=== PATIENT | male | born 1935 | race Caucasian/White ===

== ENCOUNTER → 2018-11-12 | Outpatient (CLI) | payer MEDICARE, BC | END | disposition home or self-care (01) | LOC: CVU 11:27 | PROVIDERS: ATTEND Internal Medicine Cardiovascular Disease | DX: I08.3 Combined rheumatic disorders of mitral, aortic and tricuspid valves (principal); I48.91 Unspecified atrial fibrillation; I10 Essential (primary) hypertension; E78.5 Hyperlipidemia, unspecified; Z95.0 Presence of cardiac pacemaker; Z87.891 Personal history of nicotine dependence | CPT/HCPCS: 93306 ==

== ENCOUNTER 2019-05-19 11:44 | Outpatient (CLI) | payer MEDICARE, BC ==
[~2019-05-19 11:44] MED LIST: AMLO-150 PO; ATOR40TA78 PO; FINA5TAB4 PO; LOSA100T14 PO; METO-282 PO; OMEP-110 PO; RIVA20TA PO
== END 2019-05-19 23:59 | disposition home or self-care (01) ==
LOC: PETCFH 11:44
PROVIDERS: ATTEND Otolaryngology
DX: R22.0 Localized swelling, mass and lump, head (principal)
CPT/HCPCS: 78815; A9552

== ENCOUNTER 2019-07-31 17:21 | Inpatient (IN) | payer MEDICARE, BC ==
[~2019-07-31] VITALS: Ht 185.4 cm; Wt 92.8 kg
[~2019-07-31 17:21] MED LIST changes: +DEXA4TAB66 PO; +RIVA15TA PO
--- NOTE | 2019-07-31 17:30 | NUR ---
PT BIB [facility] FROM HOME FOR ALTERED MENTAL STATUS AND FAILURE TO THRIVE. PER , PT HAS BEEN DISORIENTED FOR THE PAST SEVERAL DAYS AND REFUSING TO EAT OR DRINK MUCH. ALSO, PT HAS BEEN MORE HYPOXIC AND SOB THE PAST WEEK, REQUIRING 3L O2 INSTEAD OF 1L. PT HAD RECENT SADDLE PE DX. PT ALSO HAS HX OF SQUAMOUS CELL CARCINOMA, AFIB, BPH. ARRIVES TO ED A&OX3, C/O HEAD PRESSURE /. AT BS. Addendum: 07/31/19 at 1829 by HBENSON PT HAS BEEN ON HOME O2 FOR 4 DAYS. INITIALLY WAS ON 2L, NOW ON 3L. ALSO REPORTS THAT 4 DAYS AGO, PT "BLEW OUT THE BOLSTER THAT WAS PLACED AFTER THE CAVERNOUS SINUS DECOMPRESSION, AND HIS SYMPTOMS HAVE BEEN MUCH WORSE SINCE THEN".
[2019-07-31] MEDS ORDERED: DEXA0.5T15 PO (17:52)
[2019-07-31] MEDS ORDERED: OXYC10TA6 PO (17:53)
--- NOTE | 2019-07-31 18:00 | NUR ---
PT ATTEMPTED TO VOID SITTING AT THE SIDE OF THE BED WITH ASSISTANCE, BUT WAS UNABLE TO VOID. FAMILY STATES PT DIDN'T EAT OR DRINK MUCH TODAY AND HASN'T VOIDED MUCH.
--- NOTE | 2019-07-31 18:27 | NUR ---
ERP AT NOW.
[2019-07-31 18:50] LABS: BASOPHILS # (AUTO) 0.03 x10^3/uL (0-0.1); BASOPHILS % (AUTO) 0 % (0-1); EOSINOPHILS % (AUTO) 0 % (1-7); LYMPHOCYTES # (AUTO) 0.57 x10^3/uL (1-3.4); LYMPHOCYTES % (AUTO) 7 % (22-44); MD NO; MEAN CORPUSCULAR HEMOGLOBIN 31.8 pg (27.5-34.5); MEAN CORPUSCULAR HGB CONC 33.7 g/dL (33.2-36.2); MEAN CORPUSCULAR VOLUME 94.2 fL (81-97); MONOCYTES # (AUTO) 0.28 x10^3/uL (0.2-0.8); MONOCYTES % (AUTO) 4 % (2-9); NEUTROPHILS # (AUTO) 6.84 x10^3/uL (1.8-6.8); NEUTROPHILS % (AUTO) 89 % (42-75); PLATELET COUNT 135 x10^3/uL (130-400); RED BLOOD COUNT 3.85 x10^6/uL (4.38-5.82); RED CELL DISTRIBUTION WIDTH 16.4 % (9.4-14.8)
[2019-07-31 18:59] LABS: INTERNATIONAL NORMALIZED RATIO 1.53 (0.93-1.1); PROTHROMBIN TIME 15.8 Seconds (9.6-11.5)
[2019-07-31] MEDS ORDERED: PLEASE ENTER ALLERGIES MC SCH (19:00)
[2019-07-31] MEDS ORDERED: ONDANSETRON 2MG/ML, 2ML IVPush ONE (19:00)
[2019-07-31] MEDS ORDERED: SODIUM CHLORIDE 0.9% 1,000ML IVBOLUS ONE (19:00)
[2019-07-31] MEDS ORDERED: ACETAMINOPHEN 325 MG TABLET PO ONE (19:00)
[2019-07-31 19:02] LABS: ALANINE AMINOTRANSFERASE 48 U/L (12-78); ALBUMIN 1.8 g/dL (3.4-5.0); ANION GAP 7 mmol/L (5-15); CALCIUM 8.9 mg/dL (8.5-10.1); CHLORIDE 95 mmol/L (98-107); CREATININE 0.99 mg/dL (0.7-1.3)
[2019-07-31 19:06] LABS: ALKALINE PHOSPHATASE 128 U/L (45-117); BILIRUBIN,TOTAL 1.4 mg/dL (0.2-1.0); TOTAL PROTEIN 6.5 g/dL (6.4-8.2); TROPONIN I 0.019 ng/mL (0.000-0.045)
[2019-07-31] MEDS ORDERED: ONDANSETRON 2MG/ML, 2ML ONE (19:09)
[2019-07-31] MEDS ORDERED: MORPHINE SULFATE 4 MG/ML, 1ML ONE ×3 (19:09→23:24)
[2019-07-31] MEDS ORDERED: ACETAMINOPHEN 500 MG TABLET ONE (19:09)
[2019-07-31] MEDS: MORPHINE SULFATE 4 MG/ML, 1ML IVPush PRN ×2 (19:15→21:34)
--- NOTE | 2019-07-31 19:38 | NUR ---
SPO2 DROPPED TO 78% ON RA WHILE RESTING, PT BREATHING OUT OF MOUTH. SWITCHED TO OXYMASK AT 10L, SPO2 IMPROVED TO 92%.
--- NOTE | 2019-07-31 19:52 | NUR ---
PT TO CT VIA [facility].
--- NOTE | 2019-07-31 20:08 | NUR ---
PT BACK FROM CT. RESTING IN [facility] NOW, AWAKENS TO VOICE. FAMILY AT BS.
--- NOTE | 2019-07-31 20:47 | NUR ---
BEDSIDE REPORT RECEIVED FROM CYNDI GUO. PLAN OF CARE DISCUSSED.
--- NOTE | 2019-07-31 20:56 | NUR ---
Debbie varma in [place] - 07/31/19 at 2057 by DEIDRA POSTERIOR HEAD LACERATION IRRIGATED WITH 800ML NS. REPORTED TO ALEXUS LEMON
[2019-07-31] MEDS ORDERED: CEFTRIAXONE PMX 1GM/50ML 50 ML IV ONE (21:30)
[2019-07-31] MEDS ORDERED: AZITHROMYCIN 500 MG in SODIUM CHLORIDE 0.9% 250 ML IV SCH (21:30)
--- NOTE | 2019-07-31 21:40 | NUR ---
PATIENT MEDICATED PER EMAR, TOLERATED WELL. FAMILY IN ROOM, DENIES NEEDS
[2019-07-31] MEDS ORDERED: CEFTRIAXONE PMX 1GM/50ML 50 ML ONE (21:42)
--- NOTE | 2019-07-31 21:51 | NUR ---
TWO SETS OF BLOOD CULTURES DRAWN BEFORE ABX ADMIN
[2019-07-31] MEDS ORDERED: AZITHROMYCIN 500 MG in SODIUM CHLORIDE 0.9% 250 ML IV ONE (22:00)
--- NOTE | 2019-07-31 22:45 | NUR ---
FIRST ABX FINISHED. SWITCH TO SECOND ABX. PT TO BE TRANSPORTED WITH SECOND ABX RUNNING ON PUMP
--- NOTE | 2019-07-31 23:14 | NUR ---
REPROT GIVEN TO CYNDI RAINES. PLAN OF CARE DISCUSSED.
[2019-07-31] MEDS ORDERED: ONDANSETRON 2MG/ML, 2ML IVPush PRN (23:30)
[2019-07-31] MEDS ORDERED: BISACODYL 10 MG SUPP PR PRN (23:30)
[2019-07-31] MEDS ORDERED: TEMPLATE NON-FORMULARY MED. (Oxycodone Hcl** 10 MG) PO SCH (23:30)
[2019-07-31] MEDS ORDERED: POLYETHYLENE GLYCOL 17 GM PACKET PO PRN (23:30)
[2019-07-31] MEDS ORDERED: VANCOMYCIN PER PHARMACY MC PRN (23:30)
[2019-07-31] MEDS: RIVAROXABAN 15 MG TABLET PO SCH (23:32)
[2019-07-31] MEDS: morphine SULFATE 10 MG/ML, 1ML IVPush PRN (23:33)
[2019-07-31] MEDS ORDERED: OMNIPAQUE 350 MG/ML, 100ML BOTTLE ONE (23:36)
--- NOTE | 2019-07-31 23:37 | NUR ---
PATIENT SWITCHED TO DIFFERENT ADMITTING FLOOR.
--- NOTE | 2019-07-31 23:38 | NUR ---
PATIENT MEDICATED PER EMAR, TOELRATED WELL. GIVEN XARELTO AND MORPHINE PER MD ORDERS.
--- NOTE | 2019-07-31 23:48 | NUR ---
REPORT GIVEN TO CYNDI RECINOS. PLAN OF CARE DISCUSSED. PATIENT BEING TRANSPORTED UP AT THIS TIME
[2019-08-01 00:10] VITALS: BP 105/73
[2019-08-01] MEDS ORDERED: PHARMACOKINETIC MONITORING MC PRN (01:00)
[2019-08-01] MEDS ORDERED: PHARMACOKINETIC CONSULTATION MC ONE (01:00)
[2019-08-01] MEDS: DEXAMETHASONE 0.5 MG TABLET PO SCH ×3 (01:00→21:01)
[2019-08-01] MEDS ORDERED: DEXAMETHASONE 1 MG TABLET ONE ×2 (01:04→20:43)
[2019-08-01] MEDS: METOPROLOL TARTRATE 25 MG TABLET PO SCH ×3 (01:23→21:01)
[2019-08-01] MEDS: SODIUM CHLORIDE 0.9% 1,000 ML IV SCH ×2 (01:23→15:11)
[2019-08-01] MEDS: FINASTERIDE 5 MG TABLET PO SCH ×2 (01:23→21:01)
[2019-08-01] MEDS: ATORVASTATIN 40 MG TABLET PO SCH ×2 (01:23→21:01)
[2019-08-01] MEDS: PIPERACILLIN/TAZO/PMX 3.375GM 50 ML IV SCH ×4 (02:01→20:37)
[2019-08-01] MEDS: VANCOMYCIN 1,600 MG in SODIUM CHLORIDE 0.9% 250 ML IV SCH (03:13)
[2019-08-01] MEDS: morphine SULFATE 10 MG/ML, 1ML IVPush PRN ×5 (04:12→22:45)
[2019-08-01 05:52] LABS: BASOPHILS # (AUTO) 0.01 x10^3/uL (0-0.1); BASOPHILS % (AUTO) 0 % (0-1); EOSINOPHILS % (AUTO) 0 % (1-7); LYMPHOCYTES # (AUTO) 0.59 x10^3/uL (1-3.4); LYMPHOCYTES % (AUTO) 8 % (22-44); MD NO; MEAN CORPUSCULAR HEMOGLOBIN 31.7 pg (27.5-34.5); MEAN CORPUSCULAR HGB CONC 33.4 g/dL (33.2-36.2); MEAN CORPUSCULAR VOLUME 94.9 fL (81-97); MEAN PLATELET VOLUME 8.4 fL (7.4-10.4); MONOCYTES # (AUTO) 0.02 x10^3/uL (0.2-0.8); MONOCYTES % (AUTO) 0 % (2-9); NEUTROPHILS # (AUTO) 7.11 x10^3/uL (1.8-6.8); NEUTROPHILS % (AUTO) 92 % (42-75); PLATELET COUNT 120 x10^3/uL (130-400); RED BLOOD COUNT 3.67 x10^6/uL (4.38-5.82); RED CELL DISTRIBUTION WIDTH 16.9 % (9.4-14.8)
[2019-08-01 05:56] LABS: ANION GAP 4 mmol/L (5-15); CALCIUM 8.3 mg/dL (8.5-10.1); CHLORIDE 100 mmol/L (98-107)
[2019-08-01 06:01] LABS: ALANINE AMINOTRANSFERASE 45 U/L (12-78); ALBUMIN 1.6 g/dL (3.4-5.0); ALKALINE PHOSPHATASE 115 U/L (45-117); BILIRUBIN,TOTAL 1.3 mg/dL (0.2-1.0); CREATININE 0.84 mg/dL (0.7-1.3); TOTAL PROTEIN 5.6 g/dL (6.4-8.2)
[2019-08-01 07:14] VITALS: BP 129/83
[2019-08-01] MEDS ORDERED: DEXAMETHASONE 0.5 MG TABLET PO SCH (09:00)
[2019-08-01] MEDS: SENNA/DOCUSATE TABLET PO SCH (09:00)
[2019-08-01] MEDS: OMEPRAZOLE 20 MG CAPSULE.DR PO SCH (09:35)
[2019-08-01] MEDS: RIVAROXABAN 15 MG TABLET PO SCH ×2 (12:08→21:01)
[2019-08-01 13:32] VITALS: BP 139/79
[2019-08-01 20:02] VITALS: BP 111/67
[2019-08-02] MEDS: SODIUM CHLORIDE 0.9% 1,000 ML IV SCH ×2 (01:08→14:31)
[2019-08-02] MEDS: VANCOMYCIN 1,600 MG in SODIUM CHLORIDE 0.9% 250 ML IV SCH (01:08)
[2019-08-02 01:25] VITALS: BP 120/78
[2019-08-02] MEDS: PIPERACILLIN/TAZO/PMX 3.375GM 50 ML IV SCH ×4 (03:31→20:38)
[2019-08-02 04:53] LABS: BASOPHILS # (AUTO) 0.02 x10^3/uL (0-0.1); BASOPHILS % (AUTO) 0 % (0-1); EOSINOPHILS % (AUTO) 0 % (1-7); LYMPHOCYTES # (AUTO) 0.54 x10^3/uL (1-3.4); LYMPHOCYTES % (AUTO) 8 % (22-44); MD NO; MEAN CORPUSCULAR HEMOGLOBIN 31.5 pg (27.5-34.5); MEAN CORPUSCULAR HGB CONC 33.2 g/dL (33.2-36.2); MEAN CORPUSCULAR VOLUME 94.8 fL (81-97); MEAN PLATELET VOLUME 7.9 fL (7.4-10.4); MONOCYTES # (AUTO) 0.06 x10^3/uL (0.2-0.8); MONOCYTES % (AUTO) 1 % (2-9); NEUTROPHILS % (AUTO) 91 % (42-75); PLATELET COUNT 126 x10^3/uL (130-400); RED BLOOD COUNT 3.68 x10^6/uL (4.38-5.82); RED CELL DISTRIBUTION WIDTH 15.9 % (9.4-14.8)
[2019-08-02 05:06] LABS: ALBUMIN 1.5 g/dL (3.4-5.0); ANION GAP 4 mmol/L (5-15); CALCIUM 8.6 mg/dL (8.5-10.1); CHLORIDE 102 mmol/L (98-107)
[2019-08-02 05:11] LABS: ALANINE AMINOTRANSFERASE 38 U/L (12-78); ALKALINE PHOSPHATASE 105 U/L (45-117); CREATININE 0.75 mg/dL (0.7-1.3)
[2019-08-02] MEDS: morphine SULFATE 10 MG/ML, 1ML IVPush PRN ×5 (05:14→22:14)
[2019-08-02] MEDS: ALBUTEROL SULFATE 2.5 MG/3 ML NPPB PRN (07:25)
[2019-08-02 08:14] VITALS: BP 135/76
[2019-08-02] MEDS: DEXAMETHASONE 0.5 MG TABLET PO SCH ×2 (09:43→20:39)
[2019-08-02] MEDS: METOPROLOL TARTRATE 25 MG TABLET PO SCH ×2 (09:43→20:39)
[2019-08-02] MEDS: OMEPRAZOLE 20 MG CAPSULE.DR PO SCH (09:43)
[2019-08-02] MEDS: SENNA/DOCUSATE TABLET PO SCH (09:43)
[2019-08-02] MEDS: RIVAROXABAN 15 MG TABLET PO SCH ×2 (09:48→20:38)
[2019-08-02 10:58] LABS: MICROSCOPIC AUTO
[2019-08-02 11:01] LABS: CULTURE INDICATED? YES
[2019-08-02 13:42] VITALS: BP 123/76
[2019-08-02] MEDS: OXYcodone IR 5MG TABLET PO PRN ×2 (16:16→23:34)
[2019-08-02 19:21] VITALS: BP 134/84
[2019-08-02] MEDS: ALBUTEROL SULFATE 2.5 MG/3 ML NPPB SCH (20:00)
[2019-08-02] MEDS: FINASTERIDE 5 MG TABLET PO SCH (20:38)
[2019-08-02] MEDS: ATORVASTATIN 40 MG TABLET PO SCH (20:38)
[2019-08-03] MEDS: SODIUM CHLORIDE 0.9% 1,000 ML IV SCH ×3 (00:37→23:37)
[2019-08-03] MEDS: VANCOMYCIN 1,600 MG in SODIUM CHLORIDE 0.9% 250 ML IV SCH (00:37)
[2019-08-03 01:41] VITALS: BP 138/78
[2019-08-03] MEDS: morphine SULFATE 10 MG/ML, 1ML IVPush PRN (03:28)
[2019-08-03 04:55] LABS: BASOPHILS # (AUTO) 0.04 x10^3/uL (0-0.1); BASOPHILS % (AUTO) 1 % (0-1); EOSINOPHILS # (AUTO) 0.01 x10^3/uL (0-0.4); EOSINOPHILS % (AUTO) 0 % (1-7); LYMPHOCYTES # (AUTO) 0.46 x10^3/uL (1-3.4); LYMPHOCYTES % (AUTO) 8 % (22-44); MD NO; MEAN CORPUSCULAR HEMOGLOBIN 31.5 pg (27.5-34.5); MEAN CORPUSCULAR HGB CONC 33.3 g/dL (33.2-36.2); MEAN CORPUSCULAR VOLUME 94.6 fL (81-97); MEAN PLATELET VOLUME 7.9 fL (7.4-10.4); MONOCYTES # (AUTO) 0.16 x10^3/uL (0.2-0.8); MONOCYTES % (AUTO) 3 % (2-9); NEUTROPHILS # (AUTO) 5.51 x10^3/uL (1.8-6.8); NEUTROPHILS % (AUTO) 89 % (42-75); PLATELET COUNT 134 x10^3/uL (130-400); RED BLOOD COUNT 3.46 x10^6/uL (4.38-5.82); RED CELL DISTRIBUTION WIDTH 16.8 % (9.4-14.8)
[2019-08-03 05:01] LABS: ALBUMIN 1.6 g/dL (3.4-5.0); ANION GAP 5 mmol/L (5-15); CALCIUM 8.6 mg/dL (8.5-10.1); CHLORIDE 102 mmol/L (98-107)
[2019-08-03 05:06] LABS: ALANINE AMINOTRANSFERASE 33 U/L (12-78); ALKALINE PHOSPHATASE 103 U/L (45-117); BILIRUBIN,TOTAL 0.8 mg/dL (0.2-1.0); CREATININE 0.74 mg/dL (0.7-1.3); TOTAL PROTEIN 5.8 g/dL (6.4-8.2)
[2019-08-03] MEDS: PIPERACILLIN/TAZO/PMX 3.375GM 50 ML IV SCH ×4 (06:29→23:37)
[2019-08-03 07:07] VITALS: BP 117/77
[2019-08-03] MEDS: DEXAMETHASONE 0.5 MG TABLET PO SCH ×2 (08:50→20:23)
[2019-08-03] MEDS: METOPROLOL TARTRATE 25 MG TABLET PO SCH ×2 (08:50→20:23)
[2019-08-03] MEDS: OMEPRAZOLE 20 MG CAPSULE.DR PO SCH (08:51)
[2019-08-03] MEDS: SENNA/DOCUSATE TABLET PO SCH (08:51)
[2019-08-03] MEDS: RIVAROXABAN 15 MG TABLET PO SCH ×2 (08:51→20:22)
[2019-08-03] MEDS: ALBUTEROL SULFATE 2.5 MG/3 ML NPPB SCH ×2 (09:38→21:00)
[2019-08-03] MEDS: OXYcodone IR 5MG TABLET PO PRN ×2 (12:07→20:29)
[2019-08-03 12:27] VITALS: BP 112/67
[2019-08-03 19:22] VITALS: BP 133/81
[2019-08-03] MEDS: ATORVASTATIN 40 MG TABLET PO SCH (20:23)
[2019-08-03] MEDS: FINASTERIDE 5 MG TABLET PO SCH (21:12)
[2019-08-03] MEDS: ACETAMINOPHEN 325 MG TABLET PO PRN (23:43)
[2019-08-04 00:03] VITALS: BP 133/88
[2019-08-04] MEDS: VANCOMYCIN 1,600 MG in SODIUM CHLORIDE 0.9% 250 ML IV SCH (00:45)
[2019-08-04] MEDS: PIPERACILLIN/TAZO/PMX 3.375GM 50 ML IV SCH (06:00)
[2019-08-04 06:07] LABS: MEAN CORPUSCULAR HEMOGLOBIN 30.9 pg (27.5-34.5); MEAN CORPUSCULAR HGB CONC 32.6 g/dL (33.2-36.2); MEAN CORPUSCULAR VOLUME 94.6 fL (81-97); RED BLOOD COUNT 3.37 x10^6/uL (4.38-5.82); RED CELL DISTRIBUTION WIDTH 16.9 % (9.4-14.8)
[2019-08-04 06:13] LABS: ALBUMIN 1.4 g/dL (3.4-5.0); ANION GAP 5 mmol/L (5-15); CALCIUM 8.6 mg/dL (8.5-10.1); CHLORIDE 104 mmol/L (98-107)
[2019-08-04 06:17] LABS: ALANINE AMINOTRANSFERASE 48 U/L (12-78); ALKALINE PHOSPHATASE 103 U/L (45-117); BILIRUBIN,TOTAL 1.1 mg/dL (0.2-1.0); CREATININE 0.67 mg/dL (0.7-1.3); TOTAL PROTEIN 5.8 g/dL (6.4-8.2)
[2019-08-04 06:36] LABS: BASOPHILS % (AUTO) 0 % (0-1); EOSINOPHILS % (AUTO) 0 % (1-7); LYMPHOCYTES # (AUTO) 0.56 x10^3/uL (1-3.4); LYMPHOCYTES % (AUTO) 10 % (22-44); MD SCAN; MEAN PLATELET VOLUME 7.8 fL (7.4-10.4); MONOCYTES # (AUTO) 0.07 x10^3/uL (0.2-0.8); MONOCYTES % (AUTO) 1 % (2-9); NEUTROPHILS # (AUTO) 5.11 x10^3/uL (1.8-6.8); NEUTROPHILS % (AUTO) 89 % (42-75); PLATELET COUNT 145 x10^3/uL (130-400)
[2019-08-04] MEDS ORDERED: ALBU8.5H8 PO (06:39)
[2019-08-04] MEDS: ALBUTEROL SULFATE 2.5 MG/3 ML NPPB SCH ×2 (06:52→21:00)
[2019-08-04 08:49] VITALS: BP 142/77
[2019-08-04] MEDS ORDERED: FUROSEMIDE 20 MG/2 ML IV ONE (09:00)
[2019-08-04] MEDS ORDERED: LORazepam 2 MG/ML, 1ML IVPush ONE (09:00)
[2019-08-04] MEDS: DEXAMETHASONE 0.5 MG TABLET PO SCH ×2 (09:47→20:24)
[2019-08-04] MEDS: OMEPRAZOLE 20 MG CAPSULE.DR PO SCH (09:47)
[2019-08-04] MEDS: METOPROLOL TARTRATE 25 MG TABLET PO SCH ×2 (09:47→20:24)
[2019-08-04] MEDS: AMPICILLIN/SULBACTAM 3 GM in SODIUM CHLORIDE 0.9% 100 ML IV SCH ×3 (09:47→20:24)
[2019-08-04] MEDS: RIVAROXABAN 15 MG TABLET PO SCH (09:48)
[2019-08-04] MEDS: SENNA/DOCUSATE TABLET PO SCH (09:48)
[2019-08-04 16:51] VITALS: BP 122/67
[2019-08-04] MEDS ORDERED: PHARMACY INSTRUCTION MC PRN (18:30)
[2019-08-04] MEDS ORDERED: INSTRUCTION SEE COMMENTS XX PRN (18:30)
[2019-08-04 20:16] VITALS: BP 138/83
[2019-08-04] MEDS: MELATONIN 3 MG TABLET PO SCH (20:24)
[2019-08-04] MEDS: RIVAROXABAN 20 MG TABLET PO SCH (20:24)
[2019-08-04] MEDS: ATORVASTATIN 40 MG TABLET PO SCH (20:24)
[2019-08-04] MEDS: FINASTERIDE 5 MG TABLET PO SCH (20:25)
[2019-08-04] MEDS: QUETIAPINE 25MG TABLET PO PRN (21:10)
[2019-08-05] MEDS: morphine SULFATE 10 MG/ML, 1ML IVPush PRN ×3 (01:16→20:36)
[2019-08-05] MEDS: AMPICILLIN/SULBACTAM 3 GM in SODIUM CHLORIDE 0.9% 100 ML IV SCH ×4 (02:09→20:30)
[2019-08-05] MEDS: ALBUTEROL SULFATE 2.5 MG/3 ML NPPB SCH ×3 (05:49→20:31)
[2019-08-05 08:06] VITALS: BP 132/80
[2019-08-05] MEDS: OMEPRAZOLE 20 MG CAPSULE.DR PO SCH (08:16)
[2019-08-05] MEDS: DEXAMETHASONE 0.5 MG TABLET PO SCH ×2 (08:16→20:31)
[2019-08-05] MEDS: SENNA/DOCUSATE TABLET PO SCH ×2 (08:16→08:21)
[2019-08-05] MEDS: METOPROLOL TARTRATE 25 MG TABLET PO SCH ×2 (08:16→20:30)
[2019-08-05] MEDS ORDERED: TAMSULOSIN 0.4 MG CAP.ER.24H PO SCH (09:00)
[2019-08-05 10:00] LABS: BASOPHILS % (AUTO) 0 % (0-1); EOSINOPHILS # (AUTO) 0.01 x10^3/uL (0-0.4); EOSINOPHILS % (AUTO) 0 % (1-7); LYMPHOCYTES % (AUTO) 9 % (22-44); MD NO; MEAN CORPUSCULAR HEMOGLOBIN 31.5 pg (27.5-34.5); MEAN CORPUSCULAR HGB CONC 33.2 g/dL (33.2-36.2); MEAN PLATELET VOLUME 7.6 fL (7.4-10.4); MONOCYTES % (AUTO) 2 % (2-9); NEUTROPHILS # (AUTO) 4.78 x10^3/uL (1.8-6.8); NEUTROPHILS % (AUTO) 89 % (42-75); PLATELET COUNT 153 x10^3/uL (130-400); RED BLOOD COUNT 3.35 x10^6/uL (4.38-5.82); RED CELL DISTRIBUTION WIDTH 16.6 % (9.4-14.8)
[2019-08-05 10:09] LABS: ALANINE AMINOTRANSFERASE 45 U/L (12-78); ALBUMIN 1.5 g/dL (3.4-5.0); ANION GAP 7 mmol/L (5-15); CALCIUM 8.5 mg/dL (8.5-10.1); CHLORIDE 101 mmol/L (98-107); CREATININE 0.77 mg/dL (0.7-1.3)
[2019-08-05 10:15] LABS: ALKALINE PHOSPHATASE 113 U/L (45-117); BILIRUBIN,TOTAL 0.8 mg/dL (0.2-1.0); TOTAL PROTEIN 5.8 g/dL (6.4-8.2)
[2019-08-05] MEDS: OXYcodone IR 5MG TABLET PO PRN (11:30)
[2019-08-05 13:40] VITALS: BP 115/73
[2019-08-05 20:24] VITALS: BP 132/80
[2019-08-05] MEDS: FINASTERIDE 5 MG TABLET PO SCH (20:30)
[2019-08-05] MEDS: RIVAROXABAN 20 MG TABLET PO SCH (20:31)
[2019-08-05] MEDS: ATORVASTATIN 40 MG TABLET PO SCH (20:31)
[2019-08-05] MEDS: MELATONIN 3 MG TABLET PO SCH (20:31)
[2019-08-05] MEDS: QUETIAPINE 25MG TABLET PO PRN (23:21)
[2019-08-06] MEDS: AMPICILLIN/SULBACTAM 3 GM in SODIUM CHLORIDE 0.9% 100 ML IV SCH ×4 (02:50→19:52)
[2019-08-06] MEDS: ALBUTEROL SULFATE 2.5 MG/3 ML NPPB SCH ×3 (07:27→21:15)
[2019-08-06 09:20] LABS: ALBUMIN 1.5 g/dL (3.4-5.0); ANION GAP 5 mmol/L (5-15); CALCIUM 8.4 mg/dL (8.5-10.1); CHLORIDE 101 mmol/L (98-107); CREATININE 0.59 mg/dL (0.7-1.3); MEAN CORPUSCULAR HEMOGLOBIN 31.2 pg (27.5-34.5); MEAN CORPUSCULAR HGB CONC 32.8 g/dL (33.2-36.2); MEAN CORPUSCULAR VOLUME 95.1 fL (81-97); MEAN PLATELET VOLUME 7.6 fL (7.4-10.4); PLATELET COUNT 174 x10^3/uL (130-400); RED BLOOD COUNT 3.36 x10^6/uL (4.38-5.82); RED CELL DISTRIBUTION WIDTH 17.4 % (9.4-14.8)
[2019-08-06 09:23] LABS: ALANINE AMINOTRANSFERASE 43 U/L (12-78); ALKALINE PHOSPHATASE 109 U/L (45-117); BILIRUBIN,TOTAL 0.9 mg/dL (0.2-1.0)
[2019-08-06 09:28] VITALS: BP 126/79
[2019-08-06] MEDS: OMEPRAZOLE 20 MG CAPSULE.DR PO SCH (09:39)
[2019-08-06] MEDS: SENNA/DOCUSATE TABLET PO SCH (09:39)
[2019-08-06] MEDS: METOPROLOL TARTRATE 25 MG TABLET PO SCH ×2 (09:40→19:53)
[2019-08-06] MEDS: DEXAMETHASONE 0.5 MG TABLET PO SCH ×2 (09:40→19:53)
[2019-08-06 10:32] LABS: MD YES
[2019-08-06 10:34] LABS: BAND#(MANUAL) 0.16 x10^3/uL; BANDS%(MANUAL) 3 % (0-7); LYMPH#(MANUAL) 0.92 x10^3/uL (1-3.4); LYMPHS% (MANUAL) 17 % (22-44); METAMYELOCYTES# (MANUAL) 0.05 x10^3/uL (0-0); METAMYELOCYTES% (MANUAL) 1 % (0-1); MONOS#(MANUAL) 0.16 x10^3/uL (0.3-2.7); MONOS% (MANUAL) 3 % (2-9); SEGS% (MANUAL) 76 % (42-75)
[2019-08-06 10:35] LABS: <PLATELET ESTIMATE> ADEQUATE; <PLT MORPHOLOGY> NORMAL PLT MORPH; ANISOCYTOSIS 1+
[2019-08-06] MEDS: ALBUMIN HUMAN 25% 100 ML IV SCH ×3 (12:06→23:33)
[2019-08-06] MEDS: OXYcodone IR 5MG TABLET PO PRN (13:29)
[2019-08-06 14:08] VITALS: BP 136/73
[2019-08-06] MEDS: morphine SULFATE 10 MG/ML, 1ML IVPush PRN (17:56)
[2019-08-06 19:23] VITALS: BP 140/85
[2019-08-06] MEDS: ATORVASTATIN 40 MG TABLET PO SCH (19:52)
[2019-08-06] MEDS: MELATONIN 3 MG TABLET PO SCH (19:53)
[2019-08-06] MEDS: RIVAROXABAN 20 MG TABLET PO SCH (19:53)
[2019-08-06] MEDS: FINASTERIDE 5 MG TABLET PO SCH ×2 (21:00→23:32)
[2019-08-07] MEDS: AMPICILLIN/SULBACTAM 3 GM in SODIUM CHLORIDE 0.9% 100 ML IV SCH ×4 (01:27→20:13)
[2019-08-07] MEDS: QUETIAPINE 25MG TABLET PO PRN (01:27)
[2019-08-07 01:33] VITALS: BP 136/89
[2019-08-07 03:52] LABS: BASOPHILS % (AUTO) 0 % (0-1); EOSINOPHILS # (AUTO) 0.02 x10^3/uL (0-0.4); EOSINOPHILS % (AUTO) 0 % (1-7); LYMPHOCYTES # (AUTO) 0.59 x10^3/uL (1-3.4); LYMPHOCYTES % (AUTO) 11 % (22-44); MD NO; MEAN CORPUSCULAR HEMOGLOBIN 31.3 pg (27.5-34.5); MEAN CORPUSCULAR HGB CONC 33.2 g/dL (33.2-36.2); MEAN CORPUSCULAR VOLUME 94.2 fL (81-97); MEAN PLATELET VOLUME 7.9 fL (7.4-10.4); MONOCYTES # (AUTO) 0.23 x10^3/uL (0.2-0.8); MONOCYTES % (AUTO) 4 % (2-9); NEUTROPHILS # (AUTO) 4.51 x10^3/uL (1.8-6.8); NEUTROPHILS % (AUTO) 84 % (42-75); PLATELET COUNT 161 x10^3/uL (130-400); RED BLOOD COUNT 2.88 x10^6/uL (4.38-5.82); RED CELL DISTRIBUTION WIDTH 17.1 % (9.4-14.8)
[2019-08-07 04:04] LABS: ALANINE AMINOTRANSFERASE 41 U/L (12-78); ALBUMIN 2.8 g/dL (3.4-5.0); ANION GAP 6 mmol/L (5-15); CALCIUM 9.1 mg/dL (8.5-10.1); CHLORIDE 100 mmol/L (98-107); CREATININE 0.58 mg/dL (0.7-1.3)
[2019-08-07 04:06] LABS: ALKALINE PHOSPHATASE 107 U/L (45-117); BILIRUBIN,TOTAL 1.3 mg/dL (0.2-1.0); TOTAL PROTEIN 6.6 g/dL (6.4-8.2)
[2019-08-07] MEDS: ALBUMIN HUMAN 25% 100 ML IV SCH ×4 (05:27→23:44)
[2019-08-07 07:45] VITALS: BP 144/95
[2019-08-07] MEDS: OMEPRAZOLE 20 MG CAPSULE.DR PO SCH (08:35)
[2019-08-07] MEDS: METOPROLOL TARTRATE 25 MG TABLET PO SCH ×2 (08:36→20:12)
[2019-08-07] MEDS: DEXAMETHASONE 0.5 MG TABLET PO SCH ×2 (08:36→20:12)
[2019-08-07] MEDS: SENNA/DOCUSATE TABLET PO SCH (08:37)
[2019-08-07] MEDS ORDERED: FUROSEMIDE 20 MG/2 ML IV ONE (09:00)
[2019-08-07] MEDS: ALBUTEROL SULFATE 2.5 MG/3 ML NPPB SCH ×2 (09:30→14:00)
[2019-08-07 13:13] VITALS: BP 146/83
[2019-08-07 20:09] VITALS: BP 153/97
[2019-08-07] MEDS: ATORVASTATIN 40 MG TABLET PO SCH (20:12)
[2019-08-07] MEDS: FINASTERIDE 5 MG TABLET PO SCH (20:12)
[2019-08-07] MEDS: MELATONIN 3 MG TABLET PO SCH (20:12)
[2019-08-07] MEDS: RIVAROXABAN 20 MG TABLET PO SCH (20:13)
[2019-08-07] MEDS: morphine SULFATE 10 MG/ML, 1ML IVPush PRN (20:19)
[2019-08-08] MEDS: morphine SULFATE 10 MG/ML, 1ML IVPush PRN ×4 (00:23→20:26)
[2019-08-08] MEDS: AMPICILLIN/SULBACTAM 3 GM in SODIUM CHLORIDE 0.9% 100 ML IV SCH ×3 (02:02→15:10)
[2019-08-08 02:10] VITALS: BP 139/93
[2019-08-08] MEDS: OXYcodone IR 5MG TABLET PO PRN (02:13)
[2019-08-08] MEDS: ALBUTEROL SULFATE 2.5 MG/3 ML NPPB SCH ×9 (02:56→20:11)
[2019-08-08 03:28] LABS: BASOPHILS # (AUTO) 0.01 x10^3/uL (0-0.1); BASOPHILS % (AUTO) 0 % (0-1); EOSINOPHILS # (AUTO) 0.03 x10^3/uL (0-0.4); EOSINOPHILS % (AUTO) 0 % (1-7); LYMPHOCYTES # (AUTO) 0.86 x10^3/uL (1-3.4); LYMPHOCYTES % (AUTO) 14 % (22-44); MD NO; MEAN CORPUSCULAR HEMOGLOBIN 31.3 pg (27.5-34.5); MEAN CORPUSCULAR HGB CONC 33.1 g/dL (33.2-36.2); MEAN CORPUSCULAR VOLUME 94.4 fL (81-97); MEAN PLATELET VOLUME 7.7 fL (7.4-10.4); MONOCYTES # (AUTO) 0.28 x10^3/uL (0.2-0.8); MONOCYTES % (AUTO) 4 % (2-9); NEUTROPHILS # (AUTO) 5.11 x10^3/uL (1.8-6.8); NEUTROPHILS % (AUTO) 81 % (42-75); PLATELET COUNT 171 x10^3/uL (130-400); RED BLOOD COUNT 2.72 x10^6/uL (4.38-5.82)
[2019-08-08 03:41] LABS: ALANINE AMINOTRANSFERASE 43 U/L (12-78); ALBUMIN 3.9 g/dL (3.4-5.0); ANION GAP 4 mmol/L (5-15); CALCIUM 9.5 mg/dL (8.5-10.1); CHLORIDE 100 mmol/L (98-107); CREATININE 0.54 mg/dL (0.7-1.3)
[2019-08-08 03:43] LABS: ALKALINE PHOSPHATASE 114 U/L (45-117); BILIRUBIN,TOTAL 1.5 mg/dL (0.2-1.0)
[2019-08-08] MEDS: ALBUTEROL SULFATE 2.5 MG/3 ML NPPB PRN (05:10)
[2019-08-08] MEDS: ALBUMIN HUMAN 25% 100 ML IV SCH (05:24)
[2019-08-08] MEDS ORDERED: FUROSEMIDE 20 MG/2 ML IV ONE (07:00)
[2019-08-08] MEDS ORDERED: FUROSEMIDE 40 MG/4 ML IV ONE (07:00)
[2019-08-08] MEDS ORDERED: FUROSEMIDE 40 MG/4 ML ONE (07:20)
[2019-08-08 08:06] VITALS: BP 129/74
[2019-08-08] MEDS: SENNA/DOCUSATE TABLET PO SCH (09:28)
[2019-08-08] MEDS: METOPROLOL TARTRATE 25 MG TABLET PO SCH ×2 (09:33→20:25)
[2019-08-08] MEDS: DEXAMETHASONE 0.5 MG TABLET PO SCH ×2 (09:33→20:34)
[2019-08-08] MEDS: OMEPRAZOLE 20 MG CAPSULE.DR PO SCH (09:33)
[2019-08-08 14:59] VITALS: BP 158/92
[2019-08-08] MEDS ORDERED: FUROSEMIDE 20 MG/2 ML IV SCH (17:00)
[2019-08-08] MEDS: FUROSEMIDE 40 MG/4 ML IV SCH (17:40)
[2019-08-08 18:39] VITALS: BP 167/108
[2019-08-08] MEDS: PIPERACILLIN/TAZO/PMX 4.5GM 100 ML IV SCH (19:08)
[2019-08-08 20:02] VITALS: BP 137/81
[2019-08-08] MEDS: MELATONIN 3 MG TABLET PO SCH (20:24)
[2019-08-08] MEDS: ATORVASTATIN 40 MG TABLET PO SCH (20:25)
[2019-08-08] MEDS: RIVAROXABAN 20 MG TABLET PO SCH (21:13)
[2019-08-08] MEDS: FINASTERIDE 5 MG TABLET PO SCH (21:14)
[2019-08-08 23:39] VITALS: BP 136/87
[2019-08-09] VITALS: BP 136/87
[2019-08-09] MEDS: PIPERACILLIN/TAZO/PMX 4.5GM 100 ML IV SCH ×4 (00:53→18:01)
[2019-08-09] MEDS: OXYcodone IR 5MG TABLET PO PRN (00:55)
[2019-08-09 04:23] LABS: BASOPHILS # (AUTO) 0.01 x10^3/uL (0-0.1); BASOPHILS % (AUTO) 0 % (0-1); EOSINOPHILS % (AUTO) 0 % (1-7); LYMPHOCYTES # (AUTO) 0.66 x10^3/uL (1-3.4); LYMPHOCYTES % (AUTO) 9 % (22-44); MD NO; MEAN CORPUSCULAR HEMOGLOBIN 31.5 pg (27.5-34.5); MEAN CORPUSCULAR HGB CONC 33.5 g/dL (33.2-36.2); MEAN CORPUSCULAR VOLUME 94.3 fL (81-97); MEAN PLATELET VOLUME 7.7 fL (7.4-10.4); MONOCYTES # (AUTO) 0.09 x10^3/uL (0.2-0.8); MONOCYTES % (AUTO) 1 % (2-9); NEUTROPHILS # (AUTO) 6.97 x10^3/uL (1.8-6.8); NEUTROPHILS % (AUTO) 90 % (42-75); PLATELET COUNT 202 x10^3/uL (130-400); RED CELL DISTRIBUTION WIDTH 16.8 % (9.4-14.8)
[2019-08-09 04:32] LABS: ALBUMIN 3.4 g/dL (3.4-5.0); ANION GAP 7 mmol/L (5-15); CALCIUM 9.1 mg/dL (8.5-10.1); CHLORIDE 94 mmol/L (98-107)
[2019-08-09 04:35] LABS: ALANINE AMINOTRANSFERASE 47 U/L (12-78); ALKALINE PHOSPHATASE 124 U/L (45-117); BILIRUBIN,TOTAL 1.6 mg/dL (0.2-1.0); CREATININE 0.72 mg/dL (0.7-1.3); TOTAL PROTEIN 6.6 g/dL (6.4-8.2)
[2019-08-09] MEDS: ALBUTEROL SULFATE 2.5 MG/3 ML NPPB SCH ×3 (08:01→20:55)
[2019-08-09 08:30] VITALS: BP 144/86
[2019-08-09] MEDS: OMEPRAZOLE 20 MG CAPSULE.DR PO SCH (09:38)
[2019-08-09] MEDS: DEXAMETHASONE 0.5 MG TABLET PO SCH ×2 (09:39→20:16)
[2019-08-09] MEDS: FUROSEMIDE 40 MG/4 ML IV SCH ×2 (09:39→17:33)
[2019-08-09] MEDS: METOPROLOL TARTRATE 25 MG TABLET PO SCH ×2 (09:39→20:16)
[2019-08-09] MEDS: SENNA/DOCUSATE TABLET PO SCH (09:40)
[2019-08-09] MEDS: morphine SULFATE 10 MG/ML, 1ML IVPush PRN ×3 (10:55→20:19)
[2019-08-09 12:50] VITALS: BP 139/80
[2019-08-09] MEDS ORDERED: POTASSIUM CHLORIDE 20 MEQ TAB.ER.PRT ONE (17:56)
[2019-08-09] MEDS: POTASSIUM CHLORIDE 20 MEQ PACKET PO SCH (18:01)
[2019-08-09 18:58] VITALS: BP 148/81
[2019-08-09] MEDS: ATORVASTATIN 40 MG TABLET PO SCH (20:16)
[2019-08-09] MEDS: MELATONIN 3 MG TABLET PO SCH (20:16)
[2019-08-09] MEDS: FINASTERIDE 5 MG TABLET PO SCH (21:46)
[2019-08-09] MEDS: RIVAROXABAN 20 MG TABLET PO SCH (21:46)
[2019-08-10] MEDS: ACETAMINOPHEN 325 MG TABLET PO PRN (00:13)
[2019-08-10] MEDS: PIPERACILLIN/TAZO/PMX 4.5GM 100 ML IV SCH ×4 (01:01→20:00)
[2019-08-10 01:59] VITALS: BP 160/99
[2019-08-10] MEDS: morphine SULFATE 10 MG/ML, 1ML IVPush PRN ×2 (04:29→20:43)
[2019-08-10 05:31] LABS: BASOPHILS # (AUTO) 0.02 x10^3/uL (0-0.1); BASOPHILS % (AUTO) 0 % (0-1); EOSINOPHILS % (AUTO) 0 % (1-7); LYMPHOCYTES # (AUTO) 0.67 x10^3/uL (1-3.4); LYMPHOCYTES % (AUTO) 8 % (22-44); MD NO; MEAN CORPUSCULAR HEMOGLOBIN 31.2 pg (27.5-34.5); MEAN CORPUSCULAR VOLUME 94.7 fL (81-97); MEAN PLATELET VOLUME 7.7 fL (7.4-10.4); MONOCYTES # (AUTO) 0.42 x10^3/uL (0.2-0.8); MONOCYTES % (AUTO) 5 % (2-9); NEUTROPHILS # (AUTO) 7.36 x10^3/uL (1.8-6.8); NEUTROPHILS % (AUTO) 87 % (42-75); PLATELET COUNT 193 x10^3/uL (130-400); RED BLOOD COUNT 2.83 x10^6/uL (4.38-5.82); RED CELL DISTRIBUTION WIDTH 16.8 % (9.4-14.8)
[2019-08-10 05:41] LABS: ALBUMIN 3.2 g/dL (3.4-5.0); ANION GAP 3 mmol/L (5-15); CALCIUM 8.7 mg/dL (8.5-10.1); CHLORIDE 94 mmol/L (98-107)
[2019-08-10 05:44] LABS: ALANINE AMINOTRANSFERASE 50 U/L (12-78); ALKALINE PHOSPHATASE 124 U/L (45-117); BILIRUBIN,TOTAL 1.5 mg/dL (0.2-1.0); TOTAL PROTEIN 6.5 g/dL (6.4-8.2)
[2019-08-10 07:25] VITALS: BP 158/94
[2019-08-10] MEDS: FUROSEMIDE 40 MG/4 ML IV SCH (07:52)
[2019-08-10] MEDS: OMEPRAZOLE 20 MG CAPSULE.DR PO SCH (07:52)
[2019-08-10] MEDS: SENNA/DOCUSATE TABLET PO SCH (07:52)
[2019-08-10] MEDS: POTASSIUM CHLORIDE 20 MEQ PACKET PO SCH (07:52)
[2019-08-10] MEDS: METOPROLOL TARTRATE 25 MG TABLET PO SCH (07:53)
[2019-08-10] MEDS: DEXAMETHASONE 0.5 MG TABLET PO SCH ×2 (07:54→20:15)
[2019-08-10] MEDS ORDERED: POTASSIUM CHLORIDE 20 MEQ TAB.ER.PRT PO ONE (08:00)
[2019-08-10] MEDS: ALBUTEROL SULFATE 2.5 MG/3 ML NPPB SCH ×3 (09:05→19:44)
[2019-08-10] MEDS ORDERED: METOPROLOL TARTRATE 25 MG TABLET PO ONE (12:00)
[2019-08-10 13:58] VITALS: BP 143/92
[2019-08-10] MEDS ORDERED: POTASSIUM CHLORIDE 20 MEQ PACKET PO SCH (17:00)
[2019-08-10] MEDS ORDERED: FUROSEMIDE 40 MG/4 ML IV SCH (17:00)
[2019-08-10] MEDS: ATORVASTATIN 40 MG TABLET PO SCH (20:14)
[2019-08-10] MEDS: MELATONIN 3 MG TABLET PO SCH (20:14)
[2019-08-10] MEDS: FINASTERIDE 5 MG TABLET PO SCH (20:15)
[2019-08-10 20:38] VITALS: BP 132/77
[2019-08-10] MEDS: RIVAROXABAN 20 MG TABLET PO SCH (20:42)
[2019-08-10] MEDS ORDERED: METOPROLOL TARTRATE 25 MG TABLET PO SCH (21:00)
[2019-08-11] MEDS: PIPERACILLIN/TAZO/PMX 4.5GM 100 ML IV SCH (02:00)
[2019-08-11 06:31] VITALS: BP 162/75
[2019-08-11] MEDS: ALBUTEROL SULFATE 2.5 MG/3 ML NPPB SCH (07:25)
[2019-08-11 08:30] VITALS: BP 146/87
[2019-08-11 08:46] LABS: MEAN CORPUSCULAR HEMOGLOBIN 30.8 pg (27.5-34.5); MEAN CORPUSCULAR HGB CONC 32.1 g/dL (33.2-36.2); MEAN CORPUSCULAR VOLUME 95.9 fL (81-97); MEAN PLATELET VOLUME 7.5 fL (7.4-10.4); PLATELET COUNT 207 x10^3/uL (130-400); RED BLOOD COUNT 2.78 x10^6/uL (4.38-5.82); RED CELL DISTRIBUTION WIDTH 16.7 % (9.4-14.8)
[2019-08-11 08:48] LABS: ALANINE AMINOTRANSFERASE 50 U/L (12-78); ALBUMIN 2.8 g/dL (3.4-5.0); ANION GAP 6 mmol/L (5-15); CALCIUM 8.7 mg/dL (8.5-10.1); CHLORIDE 96 mmol/L (98-107); CREATININE 0.68 mg/dL (0.7-1.3)
[2019-08-11 08:50] LABS: ALKALINE PHOSPHATASE 160 U/L (45-117); BILIRUBIN,TOTAL 1.5 mg/dL (0.2-1.0); TOTAL PROTEIN 6.2 g/dL (6.4-8.2)
[2019-08-11 09:18] LABS: MD YES
[2019-08-11 09:20] LABS: BAND#(MANUAL) 0.42 x10^3/uL; BANDS%(MANUAL) 5 % (0-7); LYMPH#(MANUAL) 0.92 x10^3/uL (1-3.4); LYMPHS% (MANUAL) 11 % (22-44); METAMYELOCYTES# (MANUAL) 0.08 x10^3/uL (0-0); METAMYELOCYTES% (MANUAL) 1 % (0-1); MONOS#(MANUAL) 0.25 x10^3/uL (0.3-2.7); MONOS% (MANUAL) 3 % (2-9); MYELOCYTES# (MANUAL) 0.08 x10^3/uL (0-0); MYELOCYTES% (MANUAL) 1 % (0-0); NRBC % (MANUAL) 4 % (0-1); SEG#(MANUAL) 6.64 x10^3/uL (1.8-6.8); SEGS% (MANUAL) 79 % (42-75)
[2019-08-11 09:21] LABS: <PLATELET ESTIMATE> ADEQUATE; <PLT MORPHOLOGY> NORMAL PLT MORPH; ANISOCYTOSIS 1+; POLYCHROMASIA 1+
[2019-08-11] MEDS ORDERED: LORazepam INTENSOL 2 MG/ML SL PRN ×2 (11:00)
[2019-08-11] MEDS ORDERED: MORPHINE SULFATE 4 MG/ML, 1ML IVPush PRN (11:00)
== END 2019-08-11 13:22 | disposition expired | DRG 871 ==
LOC: ED 18:00 → EDIP 22:35 → 3N 08-01 → 4NW 08-01 12:35 → 5SO 08-08 18:35
PROVIDERS: ADMIT Internal Medicine; ATTEND Hospitalist
PROC: 02HV33Z Insertion of Infusion Device into Superior Vena Cava, Percutaneous Approach (ICD-10-PCS; principal; 2019-08-06)
PROC: B548ZZA Ultrasonography of Superior Vena Cava, Guidance (ICD-10-PCS; 2019-08-06)
DX: A41.81 Sepsis due to Enterococcus (principal); G93.41 Metabolic encephalopathy; E43 Unspecified severe protein-calorie malnutrition; J15.8 Pneumonia due to other specified bacteria; J81.0 Acute pulmonary edema; J96.21 Acute and chronic respiratory failure with hypoxia; E87.1 Hypo-osmolality and hyponatremia; E87.2 Acidosis; J90 Pleural effusion, not elsewhere classified; D68.59 Other primary thrombophilia; I48.20 Chronic atrial fibrillation, unspecified; J98.11 Atelectasis; R65.20 Severe sepsis without septic shock; Z66 Do not resuscitate; D35.2 Benign neoplasm of pituitary gland; C31.9 Malignant neoplasm of accessory sinus, unspecified; D64.9 Anemia, unspecified; D69.6 Thrombocytopenia, unspecified; E78.5 Hyperlipidemia, unspecified; I10 Essential (primary) hypertension; I27.20 Pulmonary hypertension, unspecified; J32.0 Chronic maxillary sinusitis; J32.2 Chronic ethmoidal sinusitis; N40.0 Benign prostatic hyperplasia without lower urinary tract symptoms; Y95 Nosocomial condition; Z79.01 Long term (current) use of anticoagulants; Z80.8 Family history of malignant neoplasm of other organs or systems; Z88.8 Allergy status to other drugs, medicaments and biological substances; Z86.711 Personal history of pulmonary embolism; Z87.891 Personal history of nicotine dependence; Z95.0 Presence of cardiac pacemaker; Z85.22 Personal history of malignant neoplasm of nasal cavities, middle ear, and accessory sinuses; Z68.27 Body mass index [BMI] 27.0-27.9, adult; Z51.5 Encounter for palliative care
CPT/HCPCS: 36415; 36573; 36600; 70450; 70470; 70487; 71045; 71250; 74230; 80053; 80202; 81001; 82140; 82803; 82962; 83036; 83605; 83735; 83880; 84100; 84145; 84484; 85014; 85018; 85025; 85610; 87040; 87070; 87077; 87086; 87186; 87205; 93005; 93308; 93321; 93325; 94640; 96361; 96365; 96375; 96376; G0378; J0295; J0456; J0696; J1940; J2405; J2543; J3370; J7613; P9047; Q9967; C1751; J2060; J2270; J7030; J7050; Q0177